=== PATIENT | female | born 1960 | race American Indian/Alaskan Native ===

== ENCOUNTER 2018-11-01 22:17 | Inpatient (IN) | payer MEDICARE, OTHER ==
[2018-11-01] MEDS ORDERED: ASPIRIN PO ONE (23:00)
[2018-11-01 23:52] LABS: Basophils # (Auto) 0.1 K/mm3 (0.0-0.1); Eosinophils # (Auto) 0.1 K/mm3 (0.0-0.4); Eosinophils % (Auto) 1.8 % (0.0-4.3); Hematocrit 37.6 % (30.3-42.9); Hemoglobin 12.6 gm/dl (10.1-14.3); Lymphocytes # (Auto) 3.1 K/mm3 (1.2-5.4); Lymphocytes % (Auto) 44.2 % (13.4-35.0); Mean Corpuscular HGB Conc 34 % (30-34); Mean Corpuscular Volume 77 fl (79-97); Monocytes # (Auto) 0.4 K/mm3 (0.0-0.8); Monocytes % (Auto) 5.7 % (0.0-7.3); Platelet Count 232 K/mm3 (140-440); Red Blood Count 4.91 M/mm3 (3.65-5.03); Red Cell Distribution Width 13.5 % (13.2-15.2)
[2018-11-01 23:58] LABS: Mean Corpuscular Hemoglobin 26 pg (28-32)
[2018-11-02 00:04] LABS: BUN/Creatinine Ratio 18; Blood Urea Nitrogen 9 mg/dL (7-17); Calcium 9.4 mg/dL (8.4-10.2); Hemolysis Index 6
[2018-11-02] MEDS ORDERED: NITROSTAT SL ONE (00:39)
--- NOTE | 2018-11-02 00:45 | Emergency Department Report ---
ED Chest Pain HPI - General Chief Complaint: Chest Pain Stated Complaint: CHEST PAIN/SOB/NAUSEA Time Seen by Provider: 11/02/18 00:34 Source: patient Mode of arrival: Ambulatory Limitations: No Limitations - History of Present Illness MD Complaint: chest pain -: Sudden Onset: during rest Pain Location: substernal Pain Radiation: none Severity: moderate Severity scale (0 -10): 6 Quality: sharp Consistency: constant Improves With: nothing Worsens With: nothing Treatments Prior to Arrival: none Aspirin use within the Past 7 Days: (0) No - Related Data On Oral Contraceptives: No Allergies Allergy/AdvReac Type Severity Reaction Status Date / Time amoxicillin Allergy Rash Verified 11/01/18 22:53 aspirin Allergy Bleeding Verified 11/01/18 22:53 -mycins Allergy Rash Uncoded 11/01/18 22:53 hctz Allergy Rash Uncoded 11/01/18 22:53 Heart Score - HEART Score History: Moderately suspicious EKG: Non-specific Age: 45-65 Risk factors: 1-2 risk factors Troponin: < normal limit HEART Score: 4 - Critical Actions Critical Actions: 4-6 pts:12-16.6% risk of adverse cardiac event. Should be admitted ED Review of Systems ROS: Stated complaint: CHEST PAIN/SOB/NAUSEA Other details as noted in HPI Comment: All other systems reviewed and negative Constitutional: denies: chills, fever Eyes: denies: eye pain, eye discharge, vision change ENT: denies: ear pain, throat pain Respiratory: shortness of breath. denies: cough, wheezing Cardiovascular: chest pain. denies: palpitations Endocrine: no symptoms reported Gastrointestinal: denies: abdominal pain, nausea, diarrhea Genitourinary: denies: urgency, dysuria, discharge Musculoskeletal: denies: back pain, joint swelling, arthralgia Skin: denies: rash, lesions Neurological: denies: headache, weakness, paresthesias Psychiatric: denies: anxiety, depression Hematological/Lymphatic: denies: easy bleeding, easy bruising ED Past Medical Hx - Past Medical History Previous Medical History?: Yes Hx Hypertension: Yes Additional medical history: h/o bradycardia, negative work up 2014-haven't had a problem since - Surgical History Past Surgical History?: Yes Hx Cholecystectomy: Yes (2009) Additional Surgical History: hernia repaired 2007 - Social History Smoking Status: Never Smoker Substance Use Type: None ED Physical Exam - General Limitations: No Limitations General appearance: alert, in no apparent distress - Head Head exam: Present: atraumatic, normocephalic - Eye Eye exam: Present: normal appearance - ENT ENT exam: Present: mucous membranes moist - Neck Neck exam: Present: normal inspection - Respiratory Respiratory exam: Present: normal lung sounds bilaterally. Absent: respiratory distress - Cardiovascular Cardiovascular Exam: Present: regular rate, normal rhythm. Absent: systolic murmur, diastolic murmur, rubs, gallop - GI/Abdominal GI/Abdominal exam: Present: soft, normal bowel sounds - Extremities Exam Extremities exam: Present: normal inspection - Back Exam Back exam: Present: normal inspection - Neurological Exam Neurological exam: Present: alert, oriented X3 - Psychiatric Psychiatric exam: Present: normal affect, normal mood - Skin Skin exam: Present: warm, dry, intact, normal color. Absent: rash ED Course Vital Signs 11/01/18 11/01/18 11/01/18 22:24 22:32 22:53 Temperature 98.5 F 97.6 F 98.5 F Pulse Rate 50 L 97 H 50 L Respiratory 16 18 16 Rate Blood Pressure 206/83 133/59 206/83 O2 Sat by Pulse 98 96 98 Oximetry 11/02/18 11/02/18 11/02/18 01:44 01:45 02:00 Temperature Pulse Rate 54 L 52 L 51 L Respiratory 11 L 15 Rate Blood Pressure 137/98 O2 Sat by Pulse 99 Oximetry 11/02/18 11/02/18 11/02/18 02:16 02:30 02:46 Temperature Pulse Rate 50 L 46 L 47 L Respiratory 9 L 10 L 17 Rate Blood Pressure 137/98 137/98 137/98 O2 Sat by Pulse 100 98 99 Oximetry - Consultations Consultation #1: 11/02/18 05:50 Dr Johnson to admit. PIPPA score - Pippa Score Age > 65: (0) No Aspirin use within the Past 7 Days: (0) No 3 or more CAD Risk Factors: (0) No 2 or more Angina events in past 24 hrs: (0) No Known CAD with more than 50% Stenosis: (0) No Elevated Cardiac Markers: (0) No ST Deviation Greater than 0.5mm: (0) No PIPPA Score: 0 ED Medical Decision Making - Lab Data Result diagrams: 11/01/18 23:25 11/01/18 23:25 Lab Results 11/01/18 11/01/18 Range/Units 23:25 23:25 WBC 7.1 (4.5-11.0) K/mm3 RBC 4.91 (3.65-5.03) M/mm3 Hgb 12.6 (10.1-14.3) gm/dl Hct 37.6 (30.3-42.9) % MCV 77 L (79-97) fl MCH 26 L (28-32) pg MCHC 34 (30-34) % RDW 13.5 (13.2-15.2) % Plt Count 232 (140-440) K/mm3 Lymph % (Auto) 44.2 H (13.4-35.0) % [place] % (Auto) 5.7 (0.0-7.3) % Eos % (Auto) 1.8 (0.0-4.3) % Baso % (Auto) 1.0 (0.0-1.8) % Lymph # 3.1 (1.2-5.4) K/mm3 [place] # 0.4 (0.0-0.8) K/mm3 Eos # 0.1 (0.0-0.4) K/mm3 Baso # 0.1 (0.0-0.1) K/mm3 Seg Neutrophils % 47.3 (40.0-70.0) % Seg Neutrophils # 3.4 (1.8-7.7) K/mm3 Sodium 142 (137-145) mmol/L Potassium 3.8 (3.6-5.0) mmol/L Chloride 102.8 (98-107) mmol/L Carbon Dioxide 25 (22-30) mmol/L Anion Gap 18 mmol/L BUN 9 (7-17) mg/dL Creatinine 0.5 L (0.7-1.2) mg/dL Estimated GFR > 60 ml/min BUN/Creatinine Ratio 18 % Glucose 100 (65-100) mg/dL Calcium 9.4 (8.4-10.2) mg/dL Troponin T < 0.010 (0.00-0.029) ng/mL - EKG Data -: EKG Interpreted by In EKG shows normal: sinus rhythm Rate: tachycardia (48) - EKG Data When compared to previous EKG there are: previous EKG unavailable Interpretation: nonspecific ST-T wave margo 11/02/18 00:43 No STEMI. - Radiology Data Radiology results: report reviewed, image reviewed CTA chest is negative for PE. - Medical Decision Making Chest pain. Critical care attestation.: If time is entered above; I have spent that time in minutes in the direct care of this critically ill patient, excluding procedure time. ED Disposition Clinical Impression: Chest pain Qualifiers: Chest pain type: unspecified Qualified Code(s): R07.9 - Chest pain, unspecified Disposition: 09 OP ADMIT IP TO THIS HOSP Is pt being admited?: Yes Does the pt Need Aspirin: Yes Condition: Stable Instructions: Chest Pain (ED) Referrals: PRIMARY CARE, [Primary Care Provider] - 3-5 Days Time of Disposition: 05:49
[2018-11-02] MEDS ORDERED: ASPIRIN ONE (01:40)
[2018-11-02] MEDS ORDERED: NACL 0.9% 1000 ML 1,000 ML IV ONE (02:10)
--- NOTE | 2018-11-02 02:31 | XRay Report ---
FINAL REPORT EXAM: XR CHEST 1V AP HISTORY: chest pain COMPARISON: None available. FINDINGS: Frontal view(s) of the chest obtained. Heart upper limits normal in size.. No gross consolidation or effusion. No pneumothorax. IMPRESSION: Heart upper limits normal in size. Lungs are grossly clear.
--- NOTE | 2018-11-02 04:40 | Cat Scan Report ---
FINAL REPORT EXAM: CT ANGIO CHEST HISTORY: chest pain, Elevated D-Dimer TECHNIQUE: CT imaging obtained through the chest in pulmonary angiographic phase following intraveno us administration of contrast. Transaxial, Coronal and sagittal reformats with maximal intensity proj ections are provided. PRIORS: None. FINDINGS: Normal caliber main pulmonary artery. Well opacified pulmonary arterial tree. No pulmonary embolism. No pericardial effusion. Thoracic aorta is normal in course and caliber. No periaortic fluid or stranding. No pneumothorax, effusion or focal airspace disease. The central airways are patent. No bronchiectasi s. Imaged portion of the upper abdomen is unremarkable. The superficial soft tissues are unremarkable. No acute bony abnormality or worrisome osseous lesions identified. IMPRESSION: No pulmonary embolism or other acute finding.
--- NOTE | 2018-11-02 06:33 | Event Note ---
Date: 11/02/18 See dictated H/p in reports Chest pain R/o TN protocol
[2018-11-02] MEDS ORDERED: PERCOCET 5/325 PO PRN (06:34)
[2018-11-02] MEDS ORDERED: ZOFRAN IV PRN (06:34)
[2018-11-02] MEDS ORDERED: SODIUM CHLORIDE FLUSH SYRINGE 10 ML IV PRN (06:34)
[2018-11-02] MEDS ORDERED: DILAUDID IV PRN (06:34)
[2018-11-02] MEDS ORDERED: COZAAR PO SCH (10:00)
[2018-11-02] MEDS: SODIUM CHLORIDE FLUSH SYRINGE 10 ML IV SCH ×2 (10:59→22:11)
[2018-11-02] MEDS: COREG PO SCH ×2 (10:59→22:10)
[2018-11-02] MEDS ORDERED: AFLURIA QUAD 2018-2019 SYRINGE IM ONE (14:55)
[2018-11-02] MEDS ORDERED: NON-FORMULARY (Losartan [Cozaar] 100 MG) PO SCH ×2 (18:15)
[2018-11-02] MEDS: COZAAR PO SCH (19:49)
[2018-11-03 07:32] LABS: Alanine Aminotransferase 7 units/L (7-56); Albumin 3.5 g/dL (3.9-5); BUN/Creatinine Ratio 12; Blood Urea Nitrogen 7 mg/dL (7-17); Calcium 9.1 mg/dL (8.4-10.2); Hemolysis Index 36
[2018-11-03] MEDS: COZAAR PO SCH (09:26)
[2018-11-03] MEDS: SODIUM CHLORIDE FLUSH SYRINGE 10 ML IV SCH ×2 (09:26→22:46)
[2018-11-03] MEDS: COREG PO SCH ×2 (09:26→22:45)
[2018-11-03] MEDS: TYLENOL PO PRN (09:32)
[2018-11-03] MEDS ORDERED: MIRALAX 3350 PO PRN (11:04)
[2018-11-03] MEDS ORDERED: AFLURIA QUAD 2018-2019 SYRINGE IM ONE (12:00)
--- NOTE | 2018-11-03 16:48 | History and Physical Report ---
History of Present Illness Date of examination: 11/02/18 Date of admission: 11/02/18 06:47 Chief complaint: Chest pain for 2 days History of present illness: History of present illness: 58-year-old -[place] female with history of hypertension and hyperlipidemia comes in for left-sided chest pain of today's duration. Intermittent in nature. Pain is about 6-7 on a scale of 1-10. No shortness of breath no diaphoresis no palpitations. Exertion does not precipitate chest pain. No syncope. Past History Past Medical History: hypertension, hyperlipidemia Past Surgical History: No surgical history Social history: lives with family, full code Family history: hypertension Medications and Allergies Allergies Allergy/AdvReac Type Severity Reaction Status Date / Time amoxicillin Allergy Rash Verified 11/01/18 22:53 aspirin Allergy Bleeding Verified 11/01/18 22:53 -mycins Allergy Rash Uncoded 11/01/18 22:53 hctz Allergy Rash Uncoded 11/01/18 22:53 Home Medications Medication Instructions Recorded Confirmed Last Taken Type AtorvaSTATin [Lipitor] 40 mg PO QHS 11/02/18 11/02/18 Unknown History Losartan [Cozaar] 100 mg PO QDAY 11/02/18 11/02/18 Unknown History Active Meds: Active Medications Acetaminophen (Tylenol) 650 mg PO Q4H PRN PRN Reason: Pain MILD(1-3)/Fever >100.5/ROMERO Last Admin: 11/03/18 09:32 Dose: 650 mg Documented by: Atorvastatin Calcium (Lipitor) 40 mg PO QHS [facility] Last Admin: 11/02/18 22:11 Dose: 40 mg Documented by: Carvedilol (Coreg) 6.25 mg PO BID [facility] Last Admin: 11/03/18 09:26 Dose: Not Given Documented by: Hydromorphone HCl (Dilaudid) 0.5 mg IV Q3H PRN PRN Reason: Pain , Severe (7-10) Losartan Potassium (Cozaar) 100 mg PO QDAY [facility] Last Admin: 11/03/18 09:26 Dose: 100 mg Documented by: Ondansetron HCl (Zofran) 4 mg IV Q8H PRN PRN Reason: Nausea And Vomiting Last Admin: 11/02/18 17:53 Dose: 4 mg Documented by: Oxycodone/Acetaminophen (Percocet 5/325) 1 tab PO Q6H PRN PRN Reason: Pain, Moderate (4-6) Last Admin: 11/02/18 14:15 Dose: 1 tab Documented by: Polyethylene Glycol (Miralax [id number]) 17 gm PO QDAY PRN PRN Reason: Constipation Last Admin: 11/03/18 12:14 Dose: 17 gm Documented by: Sodium Chloride (Sodium Chloride Flush Syringe 10 Ml) 10 ml IV BID [facility] Last Admin: 11/03/18 09:26 Dose: 10 ml Documented by: Sodium Chloride (Sodium Chloride Flush Syringe 10 Ml) 10 ml IV PRN PRN PRN Reason: LINE FLUSH Review of Systems All systems: negative Exam - Constitutional Vitals: Temp Pulse Resp BP Pulse Ox 98.4 F 49 L 20 142/69 96 11/03/18 15:33 11/03/18 15:33 11/03/18 15:33 11/03/18 15:33 11/03/18 15:33 General appearance: Present: no acute distress, well-nourished - EENT Eyes: Present: PERRL ENT: hearing intact, clear oral mucosa - Neck Neck: Present: supple, normal ROM - Respiratory Respiratory effort: normal Respiratory: bilateral: CTA - Cardiovascular Heart rate: 50 Rhythm: regular Heart Sounds: Present: S1 & S2. Absent: rub, click - Extremities Extremities: no ischemia, pulses intact, pulses symmetrical, No edema Peripheral Pulses: within normal limits - Abdominal General gastrointestinal: Present: soft, non-tender, non-distended, normal bowel sounds Female genitourinary: Present: normal - Integumentary Integumentary: Present: clear, warm, dry - Musculoskeletal Musculoskeletal: gait normal, strength equal bilaterally - Psychiatric Psychiatric: appropriate mood/affect, intact judgment & insight - Neurologic Neurologic: CNII-XII intact, moves all extremities - Allied Health Allied health notes reviewed: nursing, case management Results - Labs CBC & Chem 7: 11/01/18 23:25 11/03/18 04:58 Labs: Laboratory Last Values WBC 7.1 K/mm3 (4.5-11.0) 11/01/18 23:25 RBC 4.91 M/mm3 (3.65-5.03) 11/01/18 23:25 Hgb 12.6 gm/dl (10.1-14.3) 11/01/18 23:25 Hct 37.6 % (30.3-42.9) 11/01/18 23:25 MCV 77 fl (79-97) L 11/01/18 23:25 MCH 26 pg (28-32) L 11/01/18 23:25 MCHC 34 % (30-34) 11/01/18 23:25 RDW 13.5 % (13.2-15.2) 11/01/18 23:25 Plt Count 232 K/mm3 (140-440) 11/01/18 23:25 Lymph % (Auto) 44.2 % (13.4-35.0) H 11/01/18 23:25 [place] % (Auto) 5.7 % (0.0-7.3) 11/01/18 23:25 Eos % (Auto) 1.8 % (0.0-4.3) 11/01/18 23:25 Baso % (Auto) 1.0 % (0.0-1.8) 11/01/18 23:25 Lymph # 3.1 K/mm3 (1.2-5.4) 11/01/18 23:25 [place] # 0.4 K/mm3 (0.0-0.8) 11/01/18 23:25 Eos # 0.1 K/mm3 (0.0-0.4) 11/01/18 23:25 Baso # 0.1 K/mm3 (0.0-0.1) 11/01/18 23:25 Seg Neutrophils % 47.3 % (40.0-70.0) 11/01/18 23:25 Seg Neutrophils # 3.4 K/mm3 (1.8-7.7) 11/01/18 23:25 D-Dimer 659.53 ng/mlDDU (0-234) H 11/02/18 01:02 Sodium 142 mmol/L (137-145) 11/03/18 04:58 Potassium 3.6 mmol/L (3.6-5.0) 11/03/18 04:58 Chloride 103.8 mmol/L (98-107) 11/03/18 04:58 Carbon Dioxide 24 mmol/L (22-30) 11/03/18 04:58 Anion Gap 18 mmol/L 11/03/18 04:58 BUN 7 mg/dL (7-17) 11/03/18 04:58 Creatinine 0.6 mg/dL (0.7-1.2) L 11/03/18 04:58 Estimated GFR > 60 ml/min 11/03/18 04:58 BUN/Creatinine Ratio 12 % 11/03/18 04:58 Glucose 87 mg/dL (65-100) 11/03/18 04:58 Calcium 9.1 mg/dL (8.4-10.2) 11/03/18 04:58 Total Bilirubin 0.60 mg/dL (0.1-1.2) 11/03/18 04:58 AST 14 units/L (5-40) 11/03/18 04:58 ALT 7 units/L (7-56) 11/03/18 04:58 Alkaline Phosphatase 55 units/L (35-129) 11/03/18 04:58 Troponin T < 0.010 ng/mL (0.00-0.029) 11/02/18 04:51 NT-Pro-B Natriuret Pep 88.91 pg/mL (0-900) 11/02/18 01:02 Total Protein 6.8 g/dL (6.3-8.2) 11/03/18 04:58 Albumin 3.5 g/dL (3.9-5) L 11/03/18 04:58 Albumin/Globulin Ratio 1.1 % 11/03/18 04:58 Lipase 19 units/L (13-60) 11/02/18 01:02 BMP 11/03/18 04:58 Sodium 142 Potassium 3.6 Chloride 103.8 Carbon Dioxide 24 BUN 7 Creatinine 0.6 L Glucose 87 Calcium 9.1 Liver Function 11/03/18 Range/Units 04:58 Total Bilirubin 0.60 (0.1-1.2) mg/dL AST 14 (5-40) units/L ALT 7 (7-56) units/L Alkaline Phosphatase 55 (35-129) units/L Albumin 3.5 L (3.9-5) g/dL - Imaging and Cardiology EKG: report reviewed Assessment and Plan Advance Directives: Yes (Full code) VTE prophylaxis?: Chemical Plan of care discussed with patient/family: Yes - Patient Problems (1) Chest pain Current Visit: Yes Status: Acute Qualifiers: Chest pain type: unspecified Qualified Code(s): R07.9 - Chest pain, unspecified Plan to address problem: Lexiscan in AM Troponins serially (2) HTN (hypertension) Current Visit: Yes Status: Chronic Qualifiers: Hypertension type: essential hypertension Qualified Code(s): I10 - Essential (primary) hypertension Plan to address problem: Cont Antihypertensives (3) HLD (hyperlipidemia) Current Visit: Yes Status: Chronic Qualifiers: Hyperlipidemia type: mixed hyperlipidemia Qualified Code(s): E78.2 - Mixed hyperlipidemia Plan to address problem: Cont Statins (4) Swelling of right lower extremity Current Visit: Yes Status: Acute Plan to address problem: Duplex scan (5) DVT prophylaxis Current Visit: Yes Status: Acute Plan to address problem: Lovenox and GIProphylaxis
--- NOTE | 2018-11-03 17:02 | Progress Note ---
Assessment and Plan - Patient Problems (1) Chest pain Current Visit: Yes Status: Acute Qualifiers: Chest pain type: unspecified Qualified Code(s): R07.9 - Chest pain, unspecified Plan to address problem: Lexiscan in AM Troponins serially (2) HTN (hypertension) Current Visit: Yes Status: Chronic Qualifiers: Hypertension type: essential hypertension Qualified Code(s): I10 - Essential (primary) hypertension Plan to address problem: Cont Antihypertensives (3) HLD (hyperlipidemia) Current Visit: Yes Status: Chronic Qualifiers: Hyperlipidemia type: mixed hyperlipidemia Qualified Code(s): E78.2 - Mixed hyperlipidemia Plan to address problem: Cont Statins (4) Swelling of right lower extremity Current Visit: Yes Status: Acute Plan to address problem: Duplex scan (5) DVT prophylaxis Current Visit: Yes Status: Acute Plan to address problem: Lovenox and GIProphylaxis Subjective Date of service: 11/03/18 Principal diagnosis: Chest pain Interval history: Chest pain pesistent Objective - Constitutional Vitals: Vital Signs - 12hr 11/03/18 11/03/18 11/03/18 08:00 08:20 09:26 Temperature 98.3 F Pulse Rate 49 L 53 L 53 L Pulse Rate [ From Monitor] Respiratory 20 Rate Blood Pressure 138/83 138/83 O2 Sat by Pulse 94 Oximetry 11/03/18 11/03/18 11/03/18 10:00 11:30 15:33 Temperature 98.0 F 98.4 F Pulse Rate 46 L 49 L Pulse Rate [ 53 L From Monitor] Respiratory 20 20 20 Rate Blood Pressure 152/79 142/69 O2 Sat by Pulse 99 100 96 Oximetry General appearance: Present: no acute distress, well-nourished - EENT Eyes: PERRL, EOM intact ENT: hearing intact, clear oral mucosa Ears: bilateral: normal - Neck Neck: supple, normal ROM - Respiratory Respiratory effort: normal Respiratory: bilateral: CTA - Breasts Breasts: normal - Cardiovascular Heart rate: 78 Rhythm: regular Heart Sounds: Present: S1 & S2. Absent: gallop, rub Extremities: no ischemia, pulses intact, No edema, normal color, Full ROM - Gastrointestinal General gastrointestinal: Present: soft, non-tender, non-distended, normal bowel sounds - Genitourinary Female genitourinary: normal - Integumentary Integumentary: clear, warm, dry - Musculoskeletal Musculoskeletal: 1, strength equal bilaterally - Neurologic Neurologic: moves all extremities - Psychiatric Psychiatric: memory intact, appropriate mood/affect, intact judgment & insight - Allied health notes Allied health notes reviewed: nursing, case management - Labs CBC & Chem 7: 11/01/18 23:25 11/03/18 04:58 Labs: Abnormal lab results 11/03/18 Range/Units 04:58 Creatinine 0.6 L (0.7-1.2) mg/dL Albumin 3.5 L (3.9-5) g/dL
[2018-11-03] MEDS: LASIX IV SCH (18:13)
[2018-11-03] MEDS: K-DUR PO SCH (18:13)
[2018-11-04] MEDS: COZAAR PO SCH (10:30)
[2018-11-04] MEDS: COREG PO SCH ×2 (10:31→21:42)
[2018-11-04] MEDS: K-DUR PO SCH (10:31)
[2018-11-04] MEDS: SODIUM CHLORIDE FLUSH SYRINGE 10 ML IV SCH ×2 (10:31→21:42)
[2018-11-04] MEDS: LASIX IV SCH (10:31)
[2018-11-04] MEDS: TYLENOL PO PRN ×2 (10:32→18:39)
--- NOTE | 2018-11-04 18:30 | Progress Note ---
Assessment and Plan - Patient Problems (1) Chest pain Current Visit: Yes Status: Acute Qualifiers: Chest pain type: unspecified Qualified Code(s): R07.9 - Chest pain, unspecified Plan to address problem: Lexiscan in AM (2) HTN (hypertension) Current Visit: Yes Status: Chronic Qualifiers: Hypertension type: essential hypertension Qualified Code(s): I10 - Ess ential (primary) hypertension Plan to address problem: Cont Antihypertensives (3) HLD (hyperlipidemia) Current Visit: Yes Status: Chronic Qualifiers: Hyperlipidemia type: mixed hyperlipidemia Qualified Code(s): E78.2 - Mixed hyperlipidemia Plan to address problem: Cont Statins (4) Swelling of right lower extremity Current Visit: Yes Status: Acute Plan to address problem: Duplex scan Duplex scan negative for DVT (5) DVT prophylaxis Current Visit: Yes Status: Acute Plan to address problem: Lovenox and GIProphylaxis Subjective Date of service: 11/04/18 Principal diagnosis: Chest pain Interval history: Chest pain pesistent Objective - Constitutional Vitals: Vital Signs - 12hr 11/04/18 11/04/18 11/04/18 07:46 08:44 10:00 Temperature 98.1 F Pulse Rate 47 L 50 L Respiratory 17 Rate Blood Pressure 129/60 O2 Sat by Pulse 95 98 Oximetry 11/04/18 16:26 Temperature 97.9 F Pulse Rate 48 L Respiratory 17 Rate Blood Pressure 151/64 O2 Sat by Pulse 98 Oximetry General appearance: Present: no acute distress, well-nourished - EENT Eyes: PERRL, EOM intact ENT: hearing intact, clear oral mucosa Ears: bilateral: normal - Neck Neck: supple, normal ROM - Respiratory Respiratory effort: normal Respiratory: bilateral: CTA - Breasts Breasts: normal - Cardiovascular Rhythm: regular Heart Sounds: Present: S1 & S2. Absent: gallop, rub Extremities: pulses intact, No edema, normal color, Full ROM - Gastrointestinal General gastrointestinal: Present: soft, non-tender, non-distended, normal bowel sounds - Genitourinary Female genitourinary: normal - Integumentary Integumentary: clear, warm, dry - Musculoskeletal Musculoskeletal: 1, strength equal bilaterally - Neurologic Neurologic: moves all extremities - Psychiatric Psychiatric: memory intact, appropriate mood/affect, intact judgment & insight - Labs CBC & Chem 7: 11/01/18 23:25 11/03/18 04:58
[2018-11-05] MEDS: COREG PO SCH ×2 (10:33→13:52)
[2018-11-05] MEDS: K-DUR PO SCH ×2 (10:33→13:53)
[2018-11-05] MEDS: COZAAR PO SCH ×2 (10:33→13:53)
[2018-11-05] MEDS: LASIX IV SCH ×2 (10:34→13:53)
[2018-11-05] MEDS ORDERED: LEXISCAN IV ONE (11:16)
[2018-11-05 13:27] VITALS: BP 158/80
[2018-11-05] MEDS: SODIUM CHLORIDE FLUSH SYRINGE 10 ML IV SCH (13:54)
--- NOTE | 2018-11-05 17:41 | Discharge Summary ---
Providers - Providers Date of Admission: 11/02/18 06:47 Date of discharge: 11/05/18 Attending physician: TIANNA BENSON 11/03/18 09:42 Physical Therapy Evaluation and Treat [CONS] Routine Comment: Reason For Exam: right LE weakness Primary care physician: CAYLA LY MD Hospitalization Condition: Stable Hospital course: - Patient Problems (1) Chest pain Current Visit: Yes Status: Acute Qualifiers: Chest pain type: unspecified Qualified Code(s): R07.9 - Chest pain, unspecified Plan to address problem: Lexiscan Nl ECHO nl Possible Costochondritis (2) HTN (hypertension) Current Visit: Yes Status: Chronic Qualifiers: Hypertension type: essential hypertension Qualified Code(s): I10 - Essential (primary) hypertension Plan to address problem: Cont Antihypertensives (3) HLD (hyperlipidemia) Current Visit: Yes Status: Chronic Qualifiers: Hyperlipidemia type: mixed hyperlipidemia Qualified Code(s): E78.2 - Mixed hyperlipidemia Plan to address problem: Cont Statins (4) Swelling of right lower extremity Current Visit: Yes Status: Acute Plan to address problem: Duplex scan Duplex scan negative for DVT ( 5) Costochondritis Motrin 800 tidx5 days Disposition: DC-01 TO HOME OR SELFCARE - Discharge Diagnoses (1) Chest pain Status: Acute Qualifiers: Chest pain type: unspecified Qualified Code(s): R07.9 - Chest pain, unspecified (2) HTN (hypertension) Status: Chronic Qualifiers: Hypertension type: essential hypertension Qualified Code(s): I10 - Essential (primary) hypertension (3) HLD (hyperlipidemia) Status: Chronic Qualifiers: Hyperlipidemia type: mixed hyperlipidemia Qualified Code(s): E78.2 - Mixed hyperlipidemia (4) Swelling of right lower extremity Status: Acute (5) DVT prophylaxis Status: Acute Core Measure Documentation - Palliative Care Palliative Care/ Comfort Measures: Not Applicable - Core Measures Any of the following diagnoses?: none Exam - Constitutional Vitals: Temp Pulse Resp BP Pulse Ox 97.4 F L 60 18 158/80 95 11/05/18 04:29 11/05/18 12:11 11/05/18 04:29 11/05/18 13:53 11/05/18 04:29 Plan Activity: no restrictions Follow up with: PRIMARY CARE, [Primary Care Provider] - 3-5 Days
--- NOTE | 2018-11-06 18:18 | Treadmill Report ---
THALLIUM STRESS TEST REPORT LEFT VENTRICLE: Left ventricular chamber size is within normal spread. Perfusion study demonstrates normal apical thinning, otherwise homogeneous uptake of the tracer in all segments. There were no significant perfusion defects identified. Gated analysis demonstrates normal left ventricular systolic function, ejection fraction 59%. CONCLUSION: Normal myocardial perfusion study. JOB# [id number] CA/NTS
== END 2018-11-05 19:30 | disposition home health service (06) | DRG 206 ==
LOC: ED 22:17 → 4A 11-02 06:47
PROVIDERS: ADMIT Internal Medicine; ATTEND Internal Medicine
DX: M94.0 Chondrocostal junction syndrome [Tietze] (principal); E78.2 Mixed hyperlipidemia; I10 Essential (primary) hypertension; R22.41 Localized swelling, mass and lump, right lower limb; Z82.49 Family history of ischemic heart disease and other diseases of the circulatory system; Z88.6 Allergy status to analgesic agent; Z88.8 Allergy status to other drugs, medicaments and biological substances; Z88.1 Allergy status to other antibiotic agents; Z79.899 Other long term (current) drug therapy; Z90.49 Acquired absence of other specified parts of digestive tract
CPT/HCPCS: 36415; 71045; 71275; 78452; 80048; 80053; 82962; 83690; 83880; 84484; 85025; 85379; 90686; 93005; 93010; 93017; 93306; 93970; G0378; A9270-GY; A9502; G8978-GP; G8979-GP; J1940; J2405; J2785; J3246; J7030; Q9967